=== PATIENT | female | born 1985 | race Caucasian/White ===

== ENCOUNTER → 2016-08-02 | Outpatient (REF) ==
[~2016-08-02] MED LIST: BIRTH CONTROL PILL
== END ==
LOC: ZLAB.WCH 12:39
DX: Z01.89 Encounter for other specified special examinations (principal)

== ENCOUNTER 2017-07-07 20:12 | Outpatient (CLI) | payer OTHER ==
[~2017-07-07] VITALS: Ht 162.6 cm; Wt 70.5 kg
[2017-07-07 20:40] VITALS: BP 113/72; PULSE 81
[2017-07-07] MEDS ORDERED: PRENATAL MVI (20:45)
[2017-07-07 20:47] VITALS: BP 113/72; PULSE 81; TEMP 97.9
== END 2017-07-07 22:47 | disposition home or self-care (01) ==
LOC: LDRO 20:12
DX: Z34.83 Encounter for supervision of other normal pregnancy, third trimester (principal); Z3A.39 39 weeks gestation of pregnancy

== ENCOUNTER 2017-07-08 00:38 | Inpatient (IN) | payer OTHER ==
[~2017-07-08] VITALS: Ht 162.6 cm; Wt 70.5 kg
[2017-07-08] VITALS (24 sets, daily range): BP systolic 101–143; BP diastolic 53–87; PULSE 62–92; TEMP 97.8–98.5
[~2017-07-08 00:38] MED LIST changes: +PRENATAL MVI
[2017-07-08 01:19] LABS: BASO % 0.3 % (0.0-2.0); EOS # 0.1 (0.0-0.7); EOS % 0.4 % (0-4.0); GRAN # 10.4 (1.4-6.5); GRAN % 74.5 % (42.2-75.2); HEMATOCRIT 39.7 % (37.0-47.0); HEMOGLOBIN 13.9 g/dl (12.5-16.0); LYMPH # 2.4 (1.2-3.4); LYMPH % 17.4 % (20.0-51.0); MEAN CELL VOLUME 89 fl (80.0-100.0); MEAN CORPUSCULAR HEMOGLOBIN 31 pg (27.0-31.0); MEAN CORPUSCULAR HGB CONC 35 g/dl (33.0-37.0); MEAN PLATELET VOLUME 10.8 fl (7.4-10.4); MONO % 6.9 % (1.7-9.3); PLATELET COUNT 261 K/mm3 (130-400); RED BLOOD COUNT 4.45 M/mm3 (4.10-5.30); REDCELL DISTRIBUTION WIDTH-CV 12.8 % (11.5-14.5)
[2017-07-09 08:00] VITALS: BP 114/68; PULSE 81; TEMP 97.7
[2017-07-09] MEDS ORDERED: IBU600 MG PO (08:50)
== END 2017-07-09 14:00 | disposition home or self-care (01) | DRG 775 ==
LOC: LDRO 00:38 → LDR 01:00 → OB 01:00
PROVIDERS: Obstetrics & Gynecology
PROC: 10E0XZZ Delivery of Products of Conception, External Approach (ICD-10-PCS; principal; 2017-07-08)
DX: O80 Encounter for full-term uncomplicated delivery (principal); Z3A.39 39 weeks gestation of pregnancy; Z37.0 Single live birth
CPT/HCPCS: J2590; J2795; J7120